=== PATIENT | male | born 1945 | race Two or more races ===

== ENCOUNTER 2017-08-21 07:26 | Outpatient (CLI) | payer OTHER ==
[~2017-08-21 07:26] MED LIST: LEVO-T25 MCG PO
== END 2017-08-21 07:35 | disposition home or self-care (01) ==
LOC: RX STUDY 07:26
DX: C20 Malignant neoplasm of rectum (principal)

== ENCOUNTER 2017-08-26 13:00 | Inpatient (IN) | payer OTHER ==
[~2017-08-26] VITALS: Ht 175.3 cm; Wt 71.2 kg
== END 2017-09-04 16:39 | disposition home or self-care (01) | DRG 940 ==
LOC: SURG 13:00 → O/R 09-02 10:41 → SURH 09-02 10:41 → SURG 09-02 13:00 → SURH 09-02 16:37
PROVIDERS: Colon & Rectal Surgery
PROC: 0DQB4ZZ Repair Ileum, Percutaneous Endoscopic Approach (ICD-10-PCS; principal; 2017-09-02 16:15)
DX: Z93.2 Ileostomy status (principal); C20 Malignant neoplasm of rectum; K92.1 Melena; D62 Acute posthemorrhagic anemia; R59.0 Localized enlarged lymph nodes; E03.8 Other specified hypothyroidism; M06.89 Other specified rheumatoid arthritis, multiple sites; Z85.048 Personal history of other malignant neoplasm of rectum, rectosigmoid junction, and anus

== ENCOUNTER 2018-05-28 06:42 | Day surgery (SDC) | payer OTHER | END 2018-05-28 12:25 | disposition home or self-care (01) | LOC: AMB-ENDOS 06:42 | DX: C20 Malignant neoplasm of rectum (principal) ==

== ENCOUNTER 2019-06-17 09:00 | Day surgery (SDC) | payer OTHER | END 2019-06-17 14:40 | disposition home or self-care (01) | LOC: AMB-ENDOS 09:00 | DX: K62.1 Rectal polyp (principal) ==